=== PATIENT | male | born 1965 | race Caucasian/White ===

== ENCOUNTER 2018-10-19 14:13 | Emergency (ER) | payer MEDICARE, OTHER ==
[~2018-10-19] VITALS: Ht 190.5 cm; Wt 117.0 kg
[2018-10-19 14:15] VITALS: BP 171/95
--- NOTE | 2018-10-19 14:23 | NUR ---
PT TO ROOM FROM LOBBY. PT WITH C/P L GREAT TOE PAIN AND SWELLING, PT DROPPED A WHEELCHAIR ON IT MONDAY 10/16. ER PROVIDER IN TO [facility] PT
[2018-10-19] MEDS ORDERED: LIDOCAINE-MPF 1%, 5ML ONE (15:07)
[2018-10-19] MEDS ORDERED: LIDOCAINE-MPF 1%, 5ML INFIL ONE (15:30)
--- NOTE | 2018-10-19 15:51 | NUR ---
BANDAGE APPLIED TO L GREAT TOE, S/P TOENAIL REMOVAL. PT GIVEN D/C INSTRUCTIONS,UNDERSTANDING STATED. PT ESCORTED TO D/C DESK IN STABLE CONDITON
== END 2018-10-19 15:54 | disposition home or self-care (01) ==
LOC: ED 15:48
DX: S91.202A Unspecified open wound of left great toe with damage to nail, initial encounter (principal); S90.112A Contusion of left great toe without damage to nail, initial encounter; W22.8XXA Striking against or struck by other objects, initial encounter; Y93.89 Activity, other specified; Y92.69 Other specified industrial and construction area as the place of occurrence of the external cause; Y99.8 Other external cause status; Y92.89 Other specified places as the place of occurrence of the external cause
CPT/HCPCS: 11730; 99283